=== PATIENT | female | born 1990 | race Caucasian/White ===

== ENCOUNTER 2023-07-03 10:31 | Emergency (ER) | payer BC, MEDICAID ==
[~2023-07-03] VITALS: Ht 167.6 cm; Wt 63.0 kg
[~2023-07-03 10:31] MED LIST: ALBU6.7H14 INH; ALBU8.5H17 IH; CYCL-1 PO; FLUT16SP2 NS; HYDR-4353 PO; HYDR-4383 PO; IBUP-812 PO; KETO10TA2 PO; NABU-139 PO; NO HOME MEDS; VENL37.55 PO
[2023-07-03 12:24] VITALS: TEMP 97.8
[2023-07-03] MEDS ORDERED: ondansetron 4mg rapidly disintigrating tab PO ONE (13:40)
[2023-07-03] MEDS ORDERED: morphine 2 MG/ML inj. syringe IM ONE (13:40)
[2023-07-03 13:51] VITALS: BP 129/90; PULSE 84; RESP 18; O2SAT 98
== END 2023-07-03 13:53 | disposition home or self-care (01) ==
LOC: ER 10:31
DX: S00.83XA Contusion of other part of head, initial encounter (principal); R68.84 Jaw pain; J45.909 Unspecified asthma, uncomplicated; Z87.442 Personal history of urinary calculi; Z90.49 Acquired absence of other specified parts of digestive tract; Z79.899 Other long term (current) drug therapy; Z91.041 Radiographic dye allergy status; Z88.8 Allergy status to other drugs, medicaments and biological substances; Z91.048 Other nonmedicinal substance allergy status; Y04.8XXA Assault by other bodily force, initial encounter; Y93.89 Activity, other specified; Y92.89 Other specified places as the place of occurrence of the external cause; Y99.8 Other external cause status
CPT/HCPCS: 70450; 70486; 72125; 96372; 99285; J2270